=== PATIENT | male | born 1960 | race Two or more races ===

== ENCOUNTER 2023-01-14 16:39 | Emergency (ER) | payer OTHER ==
[~2023-01-14] VITALS: Ht 157.5 cm; Wt 68.0 kg
[2023-01-14 17:35] VITALS: BP 130/81; TEMP 98.1; O2SAT 99
[2023-01-14 17:46] LABS: BASOPHILS # (AUTO) 0.1 K/uL (0.0-0.2); EOSINOPHILS # (AUTO) 0.1 K/uL (0.0-0.7); EOSINOPHILS % (AUTO) 1.6 % (0.0-6.0); HEMATOCRIT 46 % (39-51); HEMOGLOBIN 15.1 g/dL (13.5-17.5); LYMPHOCYTES # (AUTO) 2.1 K/uL (0.8-4.8); LYMPHOCYTES % (AUTO) 37.9 % (20.0-44.0); MEAN CORPUSCULAR HEMOGLOBIN 27 PG (26.0-33.0); MEAN CORPUSCULAR HGB CONC 33 g/dl (31.0-36.0); MEAN CORPUSCULAR VOLUME 81 fL (80-96); MONOCYTES # (AUTO) 0.4 K/uL (0.1-1.30); MONOCYTES % (AUTO) 7.8 % (2.0-12.0); NEUTROPHILS # (AUTO) 2.9 K/uL (1.8-8.9); NEUTROPHILS % (AUTO) 51.7 % (43.0-81.0); PLATELET COUNT (AUTO) 314 K/uL (150-450); RED BLOOD CELL COUNT(AUTO) 5.64 MIL/uL (4.5-6.0); RED CELL DISTRIBUTION WIDTH 14.6 % (11.5-15.0); WHITE BLOOD COUNT (AUTO) 5.6 K/uL (4.3-11.0)
[2023-01-14 18:26] LABS: CALCIUM, SERUM 8.3 mg/dL (8.5-10.1); CARBON DIOXIDE 22 mmol/L (21-32); CHLORIDE 102 mmol/L (98-107); CREATININE 0.7 mg/dL (0.6-1.3); GLUCOSE 113 mg/dL (74-106); POTASSIUM 3.8 mmol/L (3.5-5.1); SODIUM SERUM 135 mmol/L (136-145); UREA NITROGEN, BLOOD 11 mg/dL (7-18)
[2023-01-14 18:35] LABS: ALANINE AMINOTRANSFERASE 83 U/L (12-78); ALCOHOL, BLOOD 320 mg/dL (0-10); ALKALINE PHOSPHATASE 114 U/L (46-116); ASPARTATE AMINOTRANSFERASE 95 U/L (15-37); BILIRUBIN,DIRECT 0.2 mg/dL (0.0-0.2); BILIRUBIN,TOTAL 1.1 mg/dL (0.2-1.0); TOTAL PROTEIN, SERUM 7.6 g/dL (6.4-8.2)
[2023-01-14 18:36] LABS: ACETAMINOPHEN 0 ug/ml (10-30); SALICYLATE < 2.3 mg/dL (2.8-20.0)
== END 2023-01-14 17:36 | disposition home or self-care (01) ==
LOC: ER 16:46
DX: F10.129 Alcohol abuse with intoxication, unspecified (principal); F20.9 Schizophrenia, unspecified; Y90.8 Blood alcohol level of 240 mg/100 ml or more
CPT/HCPCS: 36415; 80048-TC; 80076-TC; 85025-TC; G0480